=== PATIENT | male | born 1980 | race Caucasian/White ===

== ENCOUNTER 2018-04-15 19:28 | Emergency (ER) | payer MEDICAID ==
[~2018-04-15] VITALS: Ht 165.1 cm; Wt 65.8 kg
[2018-04-15 20:00] VITALS: BP 111/67
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
--- NOTE | 2018-04-15 23:25 | NUR ---
Evaluated and assessed by Ms. Palacios at [facility].
[2018-04-15] MEDS ORDERED: KETOROLAC TROMETHAMINE INJ 30 MG/ML VIAL ONE (23:33)
[2018-04-16] MEDS ORDERED: KETOROLAC TROMETHAMINE INJ 60 MG/2 ML VIAL IM ONE
== END 2018-04-16 01:01 | disposition home or self-care (01) ==
LOC: ER 19:32
DX: S19.89XA Other specified injuries of other specified part of neck, initial encounter (principal); F41.9 Anxiety disorder, unspecified; V49.49XA Driver injured in collision with other motor vehicles in traffic accident, initial encounter; Y93.89 Activity, other specified; Y92.89 Other specified places as the place of occurrence of the external cause; Y99.8 Other external cause status
CPT/HCPCS: A4606; J1885; Z7610

== ENCOUNTER 2021-11-21 18:57 | Emergency (ER) | payer MEDICAID, OTHER ==
[~2021-11-21] VITALS: Ht 165.1 cm; Wt 67.1 kg
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
[2021-11-21] MEDS ORDERED: HYDR-4209 PO (21:30)
[2021-11-21] MEDS ORDERED: IBUP-1957 PO (21:30)
[2021-11-21] MEDS ORDERED: KETOROLAC TROMETHAMINE INJ 30 MG/ML VIAL IM ONE (22:00)
[2021-11-21] MEDS ORDERED: KETOROLAC TROMETHAMINE INJ 30 MG/ML VIAL ONE (22:01)
[2021-11-21 22:04] VITALS: BP 131/77
--- NOTE | 2021-11-21 22:04 | NUR ---
Patient discharged to home in stable condition. Written and verbal after care instructions given. Patient verbalizes understanding of instruction.
== END 2021-11-21 22:05 | disposition home or self-care (01) ==
LOC: ER 19:04
DX: S92.001A Unspecified fracture of right calcaneus, initial encounter for closed fracture (principal); W11.XXXA Fall on and from ladder, initial encounter; Y93.89 Activity, other specified; Y92.098 Other place in other non-institutional residence as the place of occurrence of the external cause; Y99.8 Other external cause status
CPT/HCPCS: 99284; 96372; 73610; 73630; J1885